=== PATIENT | female | born 1965 | race Caucasian/White ===

== ENCOUNTER 2016-06-11 15:52 | Emergency (ER) | payer SELFPAY ==
[~2016-06-11] VITALS: Ht 165.1 cm; Wt 73.0 kg
[~2016-06-11 15:52] MED LIST: SERO400T PO; TRAZ50TA12 PO
[2016-06-11 15:57] VITALS: BP 141/88; PULSE 88; RESP 18; TEMP 98.6; O2SAT 98
[2016-06-11] MEDS ORDERED: TETANUS/DIPHTHERIA TOXOID ADULT 0.5 ML VIAL IM ONE (16:45)
[2016-06-11] MEDS ORDERED: BACT800T5 PO (16:46)
[2016-06-11] MEDS ORDERED: CEPH500T PO (16:46)
--- NOTE | 2016-06-11 16:51 | PD ---
HPI Chief Complaint: Skin Problem Time Seen by Provider: 16:46 Travel History International Travel<30 days: No Contact w/Intl Traveler<30days: No Traveled to known affect area: No History of Present Illness HPI Patient is a 51-year-old female presenting with lesion on the chin. She states 2 days ago she scratched herself there with her fingernail and began having a small red painful lesion that looked like a pimple. She attempted to pop it yesterday and this morning she had another small lesion near it. Has been no drainage. She denies any swelling or pain or bleeding in the mouth. She denies sore throat or difficulty swallowing. She denies fever, chills, nausea and vomiting. She denies a history of MRSA but has been exposed to "carriers " . 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 This is an present for 6 years at least. Last tetanus vaccine greater than 5 years. PFSH Past Medical History Bipolar Disorder: Yes Diminished Hearing: No Neurologic: Yes (bells palsy) Psychiatric: Yes ?: Not Menopausal: Yes Social History Alcohol Use: Yes (OCC) Tobacco Use: Yes (06/05 ppd) Substance Use: No Allergies-Medications (Allergen,Severity, Reaction): Coded Allergies: No Known Allergies (Unverified , 06/11/16) Reported Meds & Prescriptions Reported Meds & Active Scripts Active Reported Seroquel (Quetiapine Fumarate) 400 Mg Tab 400 Mg PO HS Trazodone (Trazodone HCl) 50 Mg Tab 50 Mg PO HS Review of Systems Except as stated in HPI: all other systems reviewed are Neg Physical Exam Narrative GENERAL: Well-developed and well-nourished adult female in no acute distress. SKIN: 1.5 cm erythematous and indurated area the right inferior chin is well circumscribed with a central excoriation and no surrounding streaking. Mild warmth. Unable to pull and from the skin is existing abscess versus lymphadenopathy. To the left of this lesion there is a smaller lesion proximally 5 mm with similar characteristics. There is no streaking around this lesion either. No drainage. Warm and dry. Good turgor without tenting. HEAD: Normocephalic and atraumatic. EYES: PERRL bilaterally, 5mm. EOMI bilaterally. No injection or icterus present. No proptosis. Lids without edema or erythema. ENT: Buccal mucosa pink and moist. Buccal or sublingual masses. Oropharynx free of erythema, tonsillar hypertrophy, masses, swelling, asymmetry and exudates. Uvula midline and airway patent. NECK: Supple, no midline tenderness, crepitus or step-offs. Trachea midline, no JVD. No cervical or facial lymphadenopathy. No masses or induration palpated. CARDIOVASCULAR: Regular rate and rhythm without murmurs, rubs, clicks or gallops. Radial pulses 2+ bilaterally. RESPIRATORY: Clear to auscultation bilaterally with symmetrical rise and fall, no distress or use of accessory muscles. MUSCULOSKELETAL: No gait disturbances. Patient freely moving all four extremities spontaneously. Extremities without clubbing, cyanosis, or edema. No obvious deformities. NEUROLOGIC: CN II-XII grossly intact except right-sided facial weakness and chronic Merida's palsy. Awake and alert. Motor grossly within normal limits. Normal speech. PSYCHIATRIC: Appropriate mood and affect; insight and judgment normal. Data Data Last Documented VS Vital Signs Date Time Temp Pulse Resp B/P Pulse Ox O2 Delivery O2 Flow Rate FiO2 06/11/16 15:57 98.6 88 18 141/88 98 Orders Tetanus/Diphtheria Tox Adult (Tetanus/Di (06/11/16 16:45) MDM Medical Decision Making Medical Screen Exam Complete: Yes Emergency Medical Condition: Yes Differential Diagnosis Abscess versus folliculitis versus cellulitis versus lymphadenopathy Narrative Course Patient is a 51-year-old female who is afebrile and nontoxic-appearing presenting with 2 small areas of abscess on the inferior bony aspect of the chin involving the soft tissues. She has no symptoms ingesting airway compromise and these are rather superficial and do not appear to go into the deep spaces of the mouth or neck. She has no systemic symptoms. These do not appear amenable to drainage. Tetanus vaccine updated today. Patient given prescription for Bactrim and Keflex and recommend warm moist compresses and follow-up with PCP tomorrow.See discharge paperwork for further instructions. The plan was discussed with the patient who acknowledged their understanding and agreement. Reinforced the follow-up with primary care is critically important. Patient instructed on emergent conditions that should prompt return to ED. Diagnosis Primary Impression: Abscess Patient Instructions: Abscess (ED), General Instructions Additional Instructions: Keep area clean, dry, and covered with dressing/bandage Apply warm compresses daily to help with drainage Take Tylenol or ibuprofen for pain Take medications as directed Follow-up with PCP in 2 days, call laboratory for wound culture results Return to the ED for any acute worsening of symptoms including worsening swelling, spreading redness, fever, chills, nausea and vomiting Med/Other Pt SpecificInfo: Prescription(s) given Scripts Cephalexin 500 Mg [id number] Mg PO Q6H #40 TAB Prov:Paulo Aleman MD 06/11/16 Sulfamethoxazole-Trimethoprim (Bactrim DS)800-160 Mg Tab1 Tab PO BID #20 TAB Prov:Paulo Aleman MD 06/11/16 Disposition: 01 DISCHARGE HOME Condition: Stable Xavier Morales III Jun 11, 2016 16:51
== END 2016-06-11 17:19 | disposition home or self-care (01) ==
LOC: PHEFT 15:52
DX: Z23 Encounter for immunization (principal); F17.210 Nicotine dependence, cigarettes, uncomplicated
CPT/HCPCS: 90471; 90714

== ENCOUNTER 2017-04-03 14:18 | Emergency (ER) | payer SELFPAY ==
[~2017-04-03] VITALS: Ht 162.6 cm; Wt 68.0 kg
[~2017-04-03 14:18] MED LIST changes: +BACT800T5 PO; +CEPH500T PO
[2017-04-03 14:38] VITALS: BP 97/70; PULSE 104; RESP 16; TEMP 97.7; O2SAT 97
[2017-04-03] MEDS ORDERED: BUSP5TAB PO (14:43)
[2017-04-03] MEDS ORDERED: ONDANSETRON ODT 4 MG TAB PO ONE (14:45)
--- NOTE | 2017-04-03 14:48 | PD ---
HPI Chief Complaint: GI Complaint Time Seen by Provider: 14:35 Travel History International Travel<30 days: No Contact w/Intl Traveler<30days: No Traveled to known affect area: No History of Present Illness HPI 52yo F with PMH of merida's palsy, anxiety presents to the ED with request for work note on Sunday. Said her grand kids were with her this weekend and was vomiting and having diarrhea. She started feeling nauseous and vomited and had nonbloody diarrhea as well. Last episode of vomiting and diarrhea was yesterday and she missed work. Said she is feeling a little nauseous today but able to drink soup. Denies any fever, chest pain, abdominal pain, urinary complaints, vaginal bleeding or discharge. PFSH Past Medical History Bipolar Disorder: Yes Anxiety: Yes Diminished Hearing: No Neurologic: Yes (bells palsy) Psychiatric: Yes Tetanus Vaccination: < 5 Years Influenza Vaccination: No ?: Not Menopausal: Yes Social History Alcohol Use: Yes (OCC) Tobacco Use: Yes (1/2 ppd) Substance Use: Yes Allergies-Medications (Allergen,Severity, Reaction): Coded Allergies: No Known Allergies (Unverified Adverse Reaction, Unknown, 04/03/17) Reported Meds & Prescriptions Reported Meds & Active Scripts Active Reported Buspirone (Buspirone HCl) 5 Mg Tab 5 Mg PO TID Seroquel (Quetiapine Fumarate) 400 Mg Tab 400 Mg PO HS Review of Systems Except as stated in HPI: all other systems reviewed are Neg Physical Exam Narrative GENERAL: 52yo F not in distress. SKIN: Focused skin assessment warm/dry. HEAD: Atraumatic. Normocephalic. EYES: Pupils equal and round. No scleral icterus. No injection or drainage. ENT: No nasal bleeding or discharge. Mucous membranes pink and moist. NECK: Trachea midline. No JVD. CARDIOVASCULAR: Regular rate and rhythm. No murmur appreciated. RESPIRATORY: No accessory muscle use. Clear to auscultation. Breath sounds equal bilaterally. GASTROINTESTINAL: Abdomen soft, non-tender, nondistended. No rebound tenderness or guarding. MUSCULOSKELETAL: No obvious deformities. No clubbing. No cyanosis. No edema. NEUROLOGICAL: Awake and alert. Right Merida's Palsy. Motor grossly within normal limits. Normal speech. PSYCHIATRIC: Appropriate mood and affect; insight and judgment normal. Data Data Last Documented VS Vital Signs Date Time Temp Pulse Resp B/P (MAP) Pulse Ox O2 Delivery O2 Flow Rate FiO2 04/03/17 14:53 77 16 98 Room Air 04/03/17 14:38 97.7 Orders Orders Ondansetron Odt (Zofran Odt) (04/03/17 14:45) MDM Medical Decision Making Medical Screen Exam Complete: Yes Emergency Medical Condition: Yes Differential Diagnosis Viral syndrome vs. dehydration Narrative Course 52yo F with nausea and vomiting over the weekend. Pt had missed work Sunday and is requesting work note for yesterday. Said she is a little nauseous but able to tolerate PO. Will give zofran PO. HR is in the 90s. Pt has no abdominal pain and is well appearing. Does not want any blood work. Pt reevaluated at bedside after zofran and said she is no longer nauseous. Tolerating PO in the ED. Pt is more concern with her work note. Return precautions given. Diagnosis Primary Impression: Nausea Patient Instructions: General Instructions Departure Forms: Tests/Procedures, Work Release Enter return to work date: Apr 04, 2017 Additional Instructions: Please follow up with [employer] in 3-7 days. Return to the ED if symptoms worsen. Med/Other Pt SpecificInfo: No Change to Meds Disposition: 01 DISCHARGE HOME Condition: Stable Delmi Kilgore Apr 03, 2017 14:48
[2017-04-03 14:53] VITALS: PULSE 77; RESP 16; O2SAT 98
== END 2017-04-03 16:01 | disposition home or self-care (01) ==
LOC: PHED 14:18
DX: R11.2 Nausea with vomiting, unspecified (principal); F31.9 Bipolar disorder, unspecified; G51.0 Bell's palsy; F17.200 Nicotine dependence, unspecified, uncomplicated
CPT/HCPCS: 99283